=== PATIENT | male | born 1975 | race Caucasian/White ===

== ENCOUNTER 2018-09-25 09:04 | Emergency (ER) | payer BC ==
[2018-09-25 09:20] VITALS: BP 139/92
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
== END 2018-09-25 09:32 | disposition home or self-care (01) ==
LOC: UCCORT 09:04
DX: M71.562 Other bursitis, not elsewhere classified, left knee (principal); Z88.0 Allergy status to penicillin
CPT/HCPCS: 99202; G0463